=== PATIENT | female | born 1980 | race Caucasian/White ===

== ENCOUNTER → 2017-07-13 | Outpatient (CLI) | payer OTHER | END | disposition home or self-care (01) | LOC: CFH 15:08 → EDSTATUS 15:30 | PROVIDERS: ATTEND Student in an Organized Health Care Education/Training Program | DX: Z34.82 Encounter for supervision of other normal pregnancy, second trimester (principal); Z3A.23 23 weeks gestation of pregnancy | CPT/HCPCS: 76816 ==

== ENCOUNTER 2020-10-08 15:17 | Outpatient (CLI) | payer OTHER ==
[2020-10-08] MEDS ORDERED: MELA1TAB8 PO (15:54)
== END 2020-10-08 23:59 | disposition home or self-care (01) ==
LOC: STAR 15:17
PROVIDERS: ATTEND Surgery
DX: Z02.9 Encounter for administrative examinations, unspecified (principal)

== ENCOUNTER 2020-10-15 11:04 | Day surgery (SDC) | payer OTHER ==
[~2020-10-15] VITALS: Ht 177.8 cm; Wt 64.4 kg
[~2020-10-15 11:04] MED LIST: MELA1TAB8 PO
[2020-10-15 11:41] VITALS: BP 113/70
[2020-10-15] MEDS ORDERED: BUPIVACAINE/PF 0.5% ONE (11:45)
[2020-10-15 11:59] LABS: HCG UR SG 1.004 (1.003-1.030)
[2020-10-15] MEDS ORDERED: LACTATED RINGERS 1,000 ML IV SCH (12:00)
[2020-10-15] MEDS ORDERED: CHLORHEXIDINE 15 ML UDC PO ONE (12:00)
[2020-10-15] MEDS ORDERED: FENTANYL PF 100 MCG/2ML ONE (12:39)
[2020-10-15] MEDS ORDERED: MIDAZOLAM 1 MG/ML, 2ML ONE (12:39)
[2020-10-15] MEDS ORDERED: DEXAMETHASONE 4 MG/ML, 1ML ONE ×2 (12:41→12:45)
[2020-10-15] MEDS ORDERED: CEFAZOLIN 1,000 MG ONE ×2 (12:41→12:45)
[2020-10-15] MEDS ORDERED: PROPOFOL 10 MG/ML, 20ML ONE (12:46)
[2020-10-15] MEDS ORDERED: ROCURONIUM 10 MG/ML,10ML ONE (12:46)
[2020-10-15] MEDS ORDERED: ONDANSETRON 2MG/ML, 2ML ONE ×2 (13:05)
[2020-10-15] MEDS ORDERED: PROMETHAZINE 12.5 MG SUPP PR PRN (13:30)
[2020-10-15] MEDS ORDERED: ACETAMINOPHEN 325 MG TABLET PO PRN (13:30)
[2020-10-15] MEDS ORDERED: MEPERIDINE/PF 25MG/0.5ML IVPush PRN (13:30)
[2020-10-15] MEDS ORDERED: LORazepam 2 MG/ML, 1ML IVPush PRN (13:30)
[2020-10-15] MEDS ORDERED: DIAZEPAM 5 MG/ML, 2ML IVPush PRN (13:30)
[2020-10-15] MEDS ORDERED: ONDANSETRON 2MG/ML, 2ML IVPush PRN (13:30)
[2020-10-15] MEDS ORDERED: DIPHENHYDRAMINE 50 MG/ML, 1ML IVPush PRN ×2 (13:30)
[2020-10-15] MEDS ORDERED: HYDROmorphone 1 MG/ML, 1ML INJ IVPush PRN (13:30)
[2020-10-15] MEDS ORDERED: FENTANYL PF 100 MCG/2ML IV PRN (13:30)
[2020-10-15] MEDS ORDERED: PROMETHAZINE 25 MG/ML, 1ML IVPush PRN (13:30)
[2020-10-15] MEDS ORDERED: OXYcodone 5 MG/5 ML ORAL.SOL UDC PO PRN (13:30)
[2020-10-15] MEDS ORDERED: hydrALAzine 20 MG/ML, 1ML IV PRN (13:30)
[2020-10-15] MEDS ORDERED: ALBUTEROL SULFATE 2.5 MG/3 ML NPPB PRN (13:30)
[2020-10-15] MEDS ORDERED: MIDAZOLAM 1 MG/ML, 2ML IV PRN (13:30)
[2020-10-15] MEDS ORDERED: LABETALOL 5MG/ML, 20ML IV PRN (13:30)
[2020-10-15] MEDS ORDERED: EPHEDRINE 50 MG/ML, 1ML IVPush PRN (13:30)
== END 2020-10-15 15:00 | disposition home or self-care (01) ==
LOC: OUT 11:04
PROVIDERS: ATTEND Surgery
DX: R59.1 Generalized enlarged lymph nodes (principal); Z79.899 Other long term (current) drug therapy
CPT/HCPCS: 38531; 81025; 88305; 88341; 88342; J0690; J1100; J2250; J2405; J2704; J3010; J7120